=== PATIENT | male | born 2000 | race Caucasian/White ===

== ENCOUNTER 2023-12-14 14:28 | Outpatient (AMB) | payer OTHER, SELFPAY ==
--- NOTE | 2023-12-14 14:30 | A.OFFPC_ITS ---
Vital Signs 12/14/23 14:33 Height 5 ft 7 in Weight 112 lb BMI 17.5 BP 120/80 Blood Pressure Location Rt brachial Position Sitting Pulse 70 Pulse Source Pulse Oximeter Pulse Oximetry (%) 99 Oxygen Delivery Method Room Air Intake Visit Reasons: Annual PE/ Est Care Intake Note: Patient here to establish care and have physical exam. pt would like to discuss right shoulder pain/injury. Accompanied by: Self / Same As Patient Allergies No Known Allergies Allergy (Verified 12/14/23 17:16) Medication List - Last Reconciled 12/14/23 by CORETTA Marinelli No Known Home Meds Tobacco use date assessed: 12/14/23 Dental Screening Dental Screen Date: 12/14/23 Did you have a dental visit in the last 12 months?: Yes Did you have a dental problem in the last 6 months where you did not have access to dental care?: No Was dental information given to patient?: Patient has dentist HPI Annual PE/ Est Care HPI Details New pt is here for a PE. Will order labs. [facility] Social History Housing: House Patient Tobacco Use Status: Never used Tobacco e-Cigarette/Vaping Use: Never Used service: No Current occupational status: student Cognitive needs: No Hearing needs: No Vision needs: No Questionnaire PHQ-9 Over the last 2 weeks, how often have you been bothered by any of the following problems? 1. Little interest or pleasure in doing things: not at all 2. Feeling down, depressed, or hopeless: not at all 3. Trouble falling or staying asleep, or sleeping too much: several days 4. Feeling tired or having little energy: several days 5. Poor appetite or overeating: not at all 6. Feeling bad about yourself - or that you are a failure or have let yourself or your family down: not at all 7. Trouble concentrating on things, such as reading the newspaper or watching television: not at all 8. Moving or speaking so slowly that other people could have noticed. Or the opposite - being so fidgety or restless that you have been moving around a lot more than usual: not at all 9. Thoughts that you would be better off or of hurting yourself in some way: not at all Total score: 2 Depression Screening Interpretation: Negative Depression Screening Done: Yes 13085 - PHQ-9 Billing: Yes Source: Developed by Drs. Mitchel Toribio, Nisa Bridges, Siva Badillo and colleagues, with an educational ivelisse from [employer]. Thrive Questionnaire Date Thrive assessed: 12/14/23 I am a: Patient What is your living situation today?: I have a steady place to live Within the past 12 months, did the food you bought not last and you didn't have the money to get more?: Never true Within the past 12 months, did you worry whether your food would run out before you got money to buy more?: Never true Do you have trouble paying for medicines?: No Do you have trouble getting transportation to medical appointments?: No Do you have trouble paying your heating and electricity bill?: No Do you have trouble taking care of your child, family member or friend?: No Do you have trouble with day-to-day activities such as bathing, preparing meals, shopping, managing finances, etc.?: No Are you currently unemployed and looking for a job?: Yes Are you interested in more education?: No Please select the resources that you would like help with: None Currently or been in a relationship where the following occur: no concerns reported THRIVE Score: 0 AUDIT C Alcohol Use Questionnaire (AUDIT-C) 1. How often do you have a drink containing alcohol?: Monthly or less 2. How many drinks containing alcohol do you have on a typical day when you are drinking?: 1 or 2 3. How often do you have six or more drinks on one occasion?: Never Total Score: 1 Score Reviewed/Action Taken: No HALEIGH-7 AMB Questionnaire HALEIGH-7 Date HALEIGH - 7 assessed: 12/14/23 Feeling nervous, anxious, or on edge: 0 = Not at all Not being able to stop or control worryin = Not at all Worrying too much about different things: 0 = Not at all Trouble relaxin = Not at all Being so restless that it is hard to sit still: 0 = Not at all Becoming easily annoyed or irritable: 0 = Not at all Feeling afraid as if something awful might happen: 0 = Not at all Total HALEIGH-7 score (0-4 normal; 5-9 mild; 10-14 moderate; 15-21 severe): 0 Source: Developed by Drs. Mitchel Toribio, Nisa Bridges, Siva Badillo and colleagues, with an educational ivelisse from [employer]. HALEIGH-7 Assessment Billing HALEIGH-7 Assessment Tool: HALEIGH-7 Assessment 68069 Review of Systems Const Denies chills and Denies fever(s) Eyes Denies blurry vision ENT Denies vertigo, Denies dizziness and Denies sore throat Card Denies chest pain at rest, Denies chest pain with activity, Denies diaphoresis, Denies dyspnea and Denies dyspnea on exertion Resp Denies cough, Denies dyspnea, Denies dyspnea on exertion and Denies wheezing GI Denies abdominal pain, Denies melena, Denies hematochezia, Denies constipation, Denies diarrhea and Denies loose stools Denies hematuria Musc Denies numbness and Denies tingling Skin/Breast Denies lesions Neuro Denies vertigo, Denies dizziness, Denies numbness and Denies tingling Psych Denies anxiety, Denies depression, Denies homicidal ideation, Denies suicidal ideation and Denies other (substance abuse) Aller/Immun Denies wheezing Physical exam (Primary Care) Vital Signs: Last Vital Signs Pulse 70 12/14/23 14:33 BP 120/80 12/14/23 14:33 Pulse Ox 99 12/14/23 14:33 Oxygen Delivery Method Room Air 12/14/23 14:33 BMI result Body Mass Index 17.5 Tobacco/Smoking Status: Tobacco use Status Tobacco use date assessed 12/14/23 12/14/23 14:37 Patient Tobacco Use Status Never used Tobacco 12/14/23 14:37 e-Cigarette/Vaping Use Never Used 12/14/23 14:37 PHQ-9: PHQ-9 Score PHQ-9: Total score 2 12/14/23 16:15 Depression Screening Interpretation: Negative Thrive Assessment: Date of Thrive Assessment Date Thrive assessed 12/14/23 12/14/23 16:15 Currently or been in a relationship where the following occur: no concerns reported Const General: cooperative Nutritional Appearance: well nourished Orientation/consciousness: patient oriented x3 HENMT Head: Yes normal to inspection, Yes normocephalic and Yes atraumatic Ears: TM's normal bilaterally Eyes General: appearance normal, both eyes and all related structures Alignment and Position: alignment normal and position normal Neck Neck: Yes normal visual inspection and Yes no lymphadenopathy Thyroid: Thyroid normal Resp Effort & Inspection: normal respiratory effort Auscultation: clear to auscultation bilaterally Cardio Rate: regular rate Rhythm: regular rhythm Heart sounds: S1 normal heart sound present, S2 normal heart sound present and no murmurs GI Palpation (GI): Soft to palpation and nontender Auscultation: normal bowel sounds Male General Exam: Yes normal external exam Penis: normal penis Scrotum: scrotum normal, testes descended bilaterally and no inguinal hernias Testes: no testicular mass Skin Rashes: no rashes Neuro General: patient oriented x3, moves all extremities, no focal motor deficits and deep tendon reflexes 2+ bilaterally Romberg Test: Negative Psych Appearance: grossly normal Mental Status: mental status grossly normal Speech and movement: Normal speech and movement present Affect: normal affect Attitude: cooperative Thought process: Normal thought process present Thought content: Normal thought content present Insight: Good insight present (Psych) Judgement: Good judgement present (Psych) Assessment and Plan Assessment & Plan (1) Physical exam: Code(s): Z.00 - Encounter for general adult medical examination without abnormal findings Plan: Labs ordered Plan The patient agreed to the use of a medical cash poster for this encounter. Scribed for CORETTA Palacios by Caty Lucas medical cash poster, on 12/14/2023 at 14:40 EST. Orders: Orders Complete Blood Count Auto Diff Today Z00.00 - Encounter for general adult medical examination without abnormal findings TSH reflex Free T4 Today Z00.00 - Encounter for general adult medical examination without abnormal findings UA CC w/rflx Micro + Cult Today Z00.00 - Encounter for general adult medical examination without abnormal findings Comprehensive [place]. Panel Fast Today Z00.00 - Encounter for general adult medical examination without abnormal findings Lipid Panel Today Z00.00 - Encounter for general adult medical examination without abnormal findings Coding Level of Care Code New Pt Prev Care 18-39yr(84361 Diagnoses Physical exam Z00.00 Additional Codes HALEIGH-7 Assessment Billing - HALEIGH-7 Assessment Tool: HALEIGH-7 Assessment 99866 ([id number])
[2023-12-14 14:33] VITALS: BP 120/80; PULSE 70; O2SAT 99; BMI 17.5
== END 2023-12-14 17:10 | disposition home or self-care (01) ==
PROVIDERS: Visit Provider Nurse Practitioner Family
DX: Z00.00 Encounter for general adult medical examination without abnormal findings (principal)
CPT/HCPCS: 99385

== ENCOUNTER 2023-12-23 11:41 | Outpatient (REF) | payer OTHER, SELFPAY ==
[2023-12-23 13:37] LABS: MANUAL DIFF FLAG NO
[2023-12-23 13:54] LABS: Basophils Absolute Auto 0.1 X10*3/uL (0.0-0.2); Basophils Percent Auto 0.8 % (0-2); Eosinophils Absolute Auto 0.2 X10*3/uL (0.0-0.4); Eosinophils Percent Auto 2.4 % (0-4); Hematocrit 48.5 % (42.0-52.0); Hemoglobin 16.6 g/dl (14.0-18.0); Imm Gran Abs Auto 0.01 X10*3/uL (0.00-0.03); Imm Gran Pct Auto 0.2 % (0.0-0.4); Lymphocytes Absolute Auto 2.6 X10*3/uL (1.2-4.9); Mean Corpuscular HGB Conc 34.2 g/dl (31.0-36.0); Mean Corpuscular Hemoglobin 30.5 pg (27.0-33.0); Mean Platelet Volume 11.8 fL (9.4-12.4); Monocytes Absolute Auto 0.4 X10*3/uL (0.1-1.2); Monocytes Percent Auto 5.8 % (2-11); Neutrophils Absolute Auto 3.4 x10*3/uL (2.0-8.3); Neutrophils Percent Auto 51.8 % (45-73); Platelet Count 254 X10*3/uL (160-400); Red Blood Count 5.45 X10*6/uL (4.60-5.80); Red Cell Distribution Width 12.6 % (11.0-16.0); White Blood Count 6.5 X10*3/uL (4.8-10.8)
[2023-12-23 14:01] LABS: Appearance Urine Clear; Color Urine Yellow; Glucose Urine UA Negative (Negative); Leukocyte Esterase Urine Negative (Negative); Nitrite Urine Negative (Negative); Urine Blood Negative (Negative); Urine Ketones Negative (Negative); Urine Protein Negative (Neg-Trace)
[2023-12-23 14:49] LABS: Alanine Aminotransferase 33 U/L (0-40); Albumin Level 4.7 g/dL (3.5-5.0); Alkaline Phosphatase 59 U/L (39-117); Anion Gap 12 (12-20); Aspartate Amino Transferase 21 U/L (5-37); Bilirubin Total 0.7 mg/dL (0.0-1.0); Blood Urea Nitrogen 10 mg/dL (9-16); Calcium 9.6 mg/dL (8.4-10.2); Carbon Dioxide 25 mmol/L (22-29); Chloride 106 mmol/L (96-108); Cholesterol 214 mg/dL (<200); Estimated Glomerular Filt Rate > 60; Glucose Fasting 81 mg/dL (60-99); HDL Cholesterol 63 mg/dL (>40); LDL Cholesterol Calculated 134 mg/dL (<100); Potassium 3.5 mmol/L (3.3-5.1); Sodium 139 mmol/L (135-145); TSH reflex Free T4 1.05 uIU/mL (0.32-4.0); Total Protein 7.9 g/dL (6.5-8.0); Triglycerides 87 mg/dL (<150)
== END 2023-12-23 11:42 | disposition home or self-care (01) ==
LOC: HO.HMGCLDS 11:41
PROVIDERS: PCP Nurse Practitioner Family; Visit Provider Nurse Practitioner Family
DX: Z00.00 Encounter for general adult medical examination without abnormal findings (principal); Z13.6 Encounter for screening for cardiovascular disorders
CPT/HCPCS: 36415; 80053; 80061; 81003; 84443; 85025

== ENCOUNTER 2025-01-16 15:59 | Outpatient (AMB) | payer BC, SELFPAY ==
[2025-01-16 16:02] VITALS: BP 128/80; PULSE 70; O2SAT 99; BMI 17.5
--- NOTE | 2025-01-16 16:02 | A.OFFPC_ITS ---
Vital Signs 01/16/25 16:02 Height 5 ft 7 in Weight 112 lb BMI 17.5 BP 128/80 Blood Pressure Location Rt brachial Position Sitting Pulse 70 Pulse Source Pulse Oximeter Pulse Oximetry (%) 99 Intake Visit Reasons: Annual PE-See OA Ins. not active Allergies No Known Allergies Allergy (Verified 01/16/25 16:02) Medication List - Last Reconciled 01/16/25 by CORETTA Marinelli No Known Home Meds Tobacco use date assessed: 01/16/25 Dental Screening Dental Screen Date: 01/16/25 Did you have a dental visit in the last 12 months?: Yes Did you have a dental problem in the last 6 months where you did not have access to dental care?: No Was dental information given to patient?: Patient has dentist HPI Annual PE-See OA Ins. not active HPI Details History of Present Illness The patient is a 24-year-old male presenting with right shoulder pain. The pain is localized in the anterior region and has been ongoing since an injury sustained while at the gym last year. The patient reports no associated symptoms such as chest pain, shortness of breath, abdominal discomfort, blood in stool, constipation, or diarrhea. He has no suicidal or homicidal thoughts. Shoulder tests such as the Monique, neers, and Jobes tests were negative, suggesting specific physical alignment without gross deficits. The patient has not engaged in targeted therapy or stretching exercises yet and is interested in initiating a treatment plan to address his symptoms. Health Maintenance Social History - Exercise: The patient engages in gym a ctivities, which were implicated in the onset of his shoulder pain. Review of Systems - Musculoskeletal: Reports right shoulde r pain, primarily anterior. - General: Denies chest pain, shortness of breath, abdominal pain. - Gastrointestinal: Denies blood in stoo l, constipation, diarrhea. - Mental Health: Denies suicidal ideatio n and homicidal ideation. Physical Exam General: Cooperative, healthy appearing, comfortable, no acute distress and well developed Orientation: Patient oriented x3 Limitations: No limitations Head: Normal to inspection Ears: Hearing grossly normal bilaterally Nose: Normal external nose present Face and sinus: Normal facial exam Eyes: Appearance normal, both eyes and all related structures Neck: Normal visual inspection and Yes full ROM Respiratory: Normal respiratory effort and able to speak in complete sentences. Clear to auscultation bilaterally Cardiovascular: Regular rate and rhythm. Normal S1 and S2 GI: Normal to inspection. Soft to palpation and nontender Skin: No rashes or lesions noted Neuro: Patient oriented x3 Extremities: Normal to inspection, except for ongoing right shoulder pain, mostly in the anterior aspect. Negative Monique test, negative Rincon test, negative Jobes test. Results Plan For the right shoulder pain, a structured physical therapy program and a shoulder-specific stretching routine are recommended. The aim is to address and manage the symptoms effectively through non-pharmacological means, focusing on improving joint function and reducing pain during physical exertion. No immediate advanced diagnostic or pharmacological interventions were planned. Discussion Notes During our discussion, I emphasized the importance of a structured physical therapy regimen for addressing the patient's right shoulder pain. We explored the benefits of improving flexibility and strength through guided exercises, which are critical in managing this condition without pharmacological intervention at this stage. I advised him on the value of consistent application of stretching routines to alleviate his symptoms. We did not discuss further diagnostic or advanced treatment options at this time. Patient Instructions - Start physical therapy and stretching exercises as planned. - Engage in regular and consistent stret rebecca routines focused on the shoulder. - Monitor symptoms and adjust activities if pain increases. - Return for follow-up consultation if s ymptoms persist or worsen. [facility] Surgical History No pertinent past surgical history Social History (Reviewed 01/16/25 @ 16:42 by Davi Valle [employer]IND[employer] SET UP [employer]ATOR [facility] Housing: [place] Patient Tobacco Use Status: Never used Tobacco e-Cigarette/Vaping Use: Never Used service: No Current occupational status: student Cognitive needs: No Hearing needs: No Vision needs: No Questionnaire PHQ-9 Over the last 2 weeks, how often have you been bothered by any of the following problems? 1. Little interest or pleasure in doing things: not at all 2. Feeling down, depressed, or hopeless: not at all 3. Trouble falling or staying asleep, or sleeping too much: not at all 4. Feeling tired or having little energy: not at all 5. Poor appetite or overeating: several days 6. Feeling bad about yourself - or that you are a failure or have let yourself or your family down: not at all 7. Trouble concentrating on things, such as reading the newspaper or watching television: not at all 8. Moving or speaking so slowly that other people could have noticed. Or the opposite - being so fidgety or restless that you have been moving around a lot more than usual: not at all 9. Thoughts that you would be better off or of hurting yourself in some way: not at all Total score: 1 Depression Screening Interpretation: Negative Depression Screening Done: Yes 37155 - PHQ-9 Billing: Yes Source: Developed by Drs. Mitchel Toribio, Nisa Bridges, Siva Badillo and colleagues, with an educational ivelisse from [employer]. Thrive Questionnaire Date Thrive assessed: 01/16/25 I am a: Patient What is your living situation today?: I have a steady place to live Within the past 12 months, did the food you bought not last and you didn't have the money to get more?: Never true Within the past 12 months, did you worry whether your food would run out before you got money to buy more?: Never true Do you have trouble paying for medicines?: No Do you have trouble getting transportation to medical appointments?: No Do you have trouble paying your heating and electricity bill?: No Do you have trouble taking care of your child, family member or friend?: No Do you have trouble with day-to-day activities such as bathing, preparing meals, shopping, managing finances, etc.?: No Are you currently unemployed and looking for a job?: No Are you interested in more education?: No Please select the resources that you would like help with: None Currently or been in a relationship where the following occur: No concerns reported THRIVE Score: 0 AUDIT C Alcohol Use Questionnaire (AUDIT-C) 1. How often do you have a drink containing alcohol?: Monthly or less 2. How many drinks containing alcohol do you have on a typical day when you are drinking?: 3 or 4 3. How often do you have six or more drinks on one occasion?: Less than monthly Total Score: 3 Score Reviewed/Action Taken: Yes HALEIGH-7 AMB Questionnaire HALEIGH-7 Date HALEIGH - 7 assessed: 01/16/25 Feeling nervous, anxious, or on edge: 1 = Several days Not being able to stop or control worryin = Not at all Worrying too much about different things: 0 = Not at all Trouble relaxin = Not at all Being so restless that it is hard to sit still: 0 = Not at all Becoming easily annoyed or irritable: 0 = Not at all Feeling afraid as if something awful might happen: 0 = Not at all Total HALEIGH-7 score (0-4 normal; 5-9 mild; 10-14 moderate; 15-21 severe): 1 Source: Developed by Drs. Mitchel Toribio, Nisa Bridges, Siva Badillo and colleagues, with an educational ivelisse from [employer]. HALEIGH-7 Assessment Billing HALEIGH-7 Assessment Tool: HALEIGH-7 Assessment 52442 Physical exam (Primary Care) Vital Signs: Last Vital Signs Pulse 70 01/16/25 16:02 BP 128/80 01/16/25 16:02 Pulse Ox 99 01/16/25 16:02 BMI result Body Mass Index 17.5 Tobacco/Smoking Status: Tobacco use Status Tobacco use date assessed 01/16/25 01/16/25 16:03 Patient Tobacco Use Status Never used Tobacco 01/16/25 16:03 e-Cigarette/Vaping Use Never Used 01/16/25 16:03 PHQ-9: PHQ-9 Score PHQ-9: Total score 1 01/16/25 16:03 Depression Screening Interpretation: Negative Thrive Assessment: Date of Thrive Assessment Date Thrive assessed 01/16/25 01/16/25 16:03 Currently or been in a relationship where the following occur: No concerns reported Coding Level of Care Code Est Pt Prev Care 18-39y(39138) Diagnoses Physical exam Z00.00 Right shoulder pain M25.511 Additional Codes HALEIGH-7 Assessment Billing - HALEIGH-7 Assessment Tool: HALEIGH-7 Assessment 90859 ([id number]) PHQ-9 - 69192 - PHQ-9 Billing: Yes ([id number]) Assessment & Plan Assessment & Plan (1) Physical exam: Code(s): Z00.00 - Encounter for general adult medical examination without abnormal findings Category: Medical (2) Right shoulder pain: Code(s): M25.511 - Pain in right shoulder Category: Medical Plan . Orders: Orders Comprehensive [place]. Panel Fast Today Z00.00 - Encounter for general adult medical examination without abnormal findings Lipid Panel Today Z00.00 - Encounter for general adult medical examination without abnormal findings PT Evaluation and Treatment Today M25.511 - Pain in right shoulder Complete Blood Count Auto Diff Today Z00.00 - Encounter for general adult medical examination without abnormal findings TSH reflex Free T4 Today Z00.00 - Encounter for general adult medical examination without abnormal findings UA CC w/rflx Micro + Cult Today Z00.00 - Encounter for general adult medical examination without abnormal findings
--- OUTSIDE RECORDS SUMMARY | 2025-01-16 16:29 | XMS_ITS | Clinical Summary ---
Author Organization [facility] Address [address] [place] [id number] Phone Care Team Providers Care Glass Worker Name Role Phone Umair Oswald MD Primary Care Provider Allergies No known active allergies Medications No known medications Active Problems Problem Noted Date Diagnosed Date Myopia of both eyes 06/17/2022 Assessment & Plan (06/18/2022 6:35 AM EDT): On screening noted to have poor distance vision. Discussed and referring to ophthalmology for further evaluation and management. Underweight 04/27/2013 Overview (05/01/2019): Underweight (783.22) Onset: 04/27/2013 Added by: Umair Oswald Assessment & Plan (06/18/2022 6:35 AM EDT): Gaining weight. He has been eating more and going to the gym regularly. Plan to continue with this. Assessment & Plan (06/17/2021 6:09 PM EDT): He has been trying to gain weight without success, increasing calorie intake. Will obtain lab work checking for medical issues related to weight loss or trouble gaining weight. Assessment & Plan (05/07/2020 9:35 AM EDT): Discussed increasing healthy fats, protein and calories in diet. Assessment & Plan (05/01/2019 3:24 PM EDT): Discussed adding additional calories to diet. He is also looking to go to the gym to help build muscle mass. Tried previously with boost once a day supplement without much change to weight. Resolved Problems Problem Noted Date Diagnosed Date Resolved Date Precordial catch syndrome 03/24/2023 Assessment & Plan (03/24/2023 7:05 AM EDT): History and exam consistent with precordial catch. Reassured patient that this should resolve on its own. Discussed precordial catch. No concern currently for a heart, lung or reflux problem. Low back strain, initial encounter 06/17/2021 06/18/2022 Assessment & Plan (06/17/2021 6:08 PM EDT): Low back discomfort mentioned. Given handout on stretches and strengthening exercises to help with this. Immunizations Immunization Administration Dates Next Due DTaP 5 12/14/2005, 2,06/06/2001,04/10,02/01/2001 H1N1 Inj Preservative Free 10/29/2009,09/19/2009 HPV Vaccine 9 Valent 06/17/2021,05/07/2020,05/01 Hep A, Adult 06/17/2021 Hep A, ped/adol 05/01/2019 Hep B, ped/adol 03/05/2002,06/06/2001,2000 Hib (PRP-T) 03/05/2002, 1,04/10/2001,02/01 IPV 12/14/2005, 2,04/10/2001,02/01 Influenza, injectable, quadr ivalent, preservative free 06/23/2023,06/17/2022,06/17/2021 Influenza, injectable, trivalent 020,06/13/2010,06/27/2009,07/11,06/29/2007 Influenza, injectable, triva lent, preservative free 07/21/2012,05/21/2011 MMR 12/14/2005,2001 Meningococcal Conj (Menactra) MCV4P 05/09/2017,0 01/22/2013 Pneumococcal Conjugate 12/14/2004,2000,04/10/2001,02/01 Tdap 03/23/2023,01/22/2013 Varicella 01/22/2013,03/05/2002 Family History Medical History Relation Name Comments No Known Problems Father Mitchel Relation Name Status Comments Father Mitchel Alive Mother Sheron Alive Social History Tobacco Use Types Packs/Day Years Used Date Smoking Tobacco: Never Comments:Never Smoker Alcohol Use Standard Drinks/Week Comments Yes 1 (1 standard drink = 0.6 oz pur e alcohol) 1-2 times a month 1-3 drinks Hunger/Food Answer Date Recorded In the last 12 months, did y ou or your family ever eat less than you felt you should because there wasn't enough money for food? No 06/23/2023 Stable Housing Answer Date Recorded Are you worried that in the next 2 months you may not have stable housing? No 06/23/2023 Transportation Concerns Answer Date Rec orded In the last 12 months, have you or your family ever had to go without healthcare because you didn't have a way to get there? No 06/23/2023 Hazards in Home Answer Date Recorded Think about the place you li ve. Do you have problems with any of the following? Pests (mice or roaches), mold, no/not working smoke detectors, water leaks, no window guards. No 2022 Financing Utilities Answer Date Recorde d In the last 12 months, has t he electric, gas, oil, or water company threatened to shut off your services in your home? No 06/23/2023 Safety at Home Answer Date Recorded Are you or your family worried about feeling saf e in your home? No 06/23/2023 Outside Support Answer Date Recorded Do you feel that you need mo re support from other people or programs to help you care for yourself or your family? No 06/23/2023 Understanding Health Concerns Answer Da te Recorded Do you need help understandi ng your or your child's healthcare needs (diagnosis, medications, plan, etc.)? No 06/23/2023 Financing Health Concerns Answer Date R ecorded In the last 12 months, was t here a time when your child needed to see a doctor or get medications or supplies but could not because of cost? No 06/23/2023 Missing School or Work Answer Date Vivek rded Did you or your child miss s chool or work because of a health problem that could have been avoided? No 06/23/2023 Sex and Gender Information Value Date Recorded Sex Assigned at Male 05/01/2019 3:12 PM EDT Legal Sex Male 6:33 PM EDT Gender Identity Male 05/01/2019 3:12 PM EDT Sexual Orientation Straight 05/01/2019 3: 12 PM EDT Last Filed Vital Signs Vital Sign Reading Time Taken Comments Blood Pressure 120/70 06/23/2023 12:59 PM EDT Pulse 73 06/23/2023 12:59 PM EDT Temperature 36.6 ??C (97.8 ??F) 06/23/2023 12:59 PM E DT Respiratory Rate - - Oxygen Saturation 98% 06/23/2023 12:59 PM EDT Inhaled Oxygen Concentration - - Weight 52.3 kg (115 lb 4.8 oz) 06/23/2023 12:59 PM EDT Height 167.6 cm (5' 6 ) 06/23/2023 12:59 PM EDT Body Mass Index 18.61 06/23/2023 12:59 PM EDT Plan of Treatment Health Maintenance Due Date Last Done Comments Influenza Vaccines (#1) 2024 06/23/20 23, 06/17/2022, 06/17/2021, Additional history exists COVID-19 Vaccine ( season) 2024 09/23/2021, 03/09/2021, 02/16/2021 DTaP,Tdap,and Td Vaccines (8 - Td or Tdap) 03/23/2033 03/23/2023, 01/22/2013, 12/14/2005, Additional history exists HIB Vaccines Completed 03/05/2002, 05/14, 04/10/2001, Additional history exists Hepatitis B Vaccines Completed 03/05/2002, 06/06/2001, 2000 Pneumococcal Vaccine Completed 12/14/2004, 06/06/2001, 04/10/2001, Additional history exists IPV Vaccines Completed 12/14/2005, 05/14, 04/10/2001, Additional history exists MMR Vaccines Completed 12/14/2005, 2001 Varicella Vaccines Completed 01/22/2013, 03/05/2002 Meningococcal Vaccine Completed 05/09/2017, 013 HPV Vaccines Completed 06/17/2021, 04/13, 05/01/2019 Hepatitis A Vaccines Completed 06/17/2021, 05/01/20 19 Men B Vaccine Aged Out No longer elig ible based on patient's age to complete this topic Insurance [facility] [place] [id number] Care Teams Glass Worker Relationship Specialty Start Date End Date Umair Oswald MD [address] [place] [address] [place] [address] PCP - General Pediatrics 03/17/22
--- OUTSIDE RECORDS SUMMARY | 2025-01-16 16:29 | XMS_ITS | Encounter Summary ---
Author Organization [facility] Address [address] [place] [phone] Phone Care Team Providers Care College Administrator Name Role Phone Umair Oswald MD Primary Care Provider Encounter Details Date Type Department Care Team (Late st Contact Info) Description 01/28/2011 Conversion Encounter [facility] [address] [facility] [place] [phone] Social History Tobacco Use Types Packs/Day Years Used Date Smoking Tobacco: Never Assessed Sex and Gender Information Value Date Recorded Sex Assigned at Male 05/01/2019 3:12 PM EDT Legal Sex Male 6:33 PM EDT Gender Identity Male 05/01/2019 3:12 PM EDT Sexual Orientation Straight 05/01/2019 3: 12 PM EDT documented as of this encounter Plan of Treatment Not on file documented as of this encounter Visit Diagnoses Not on filedocumented in this encounter Care Teams College Administrator Relationship Specialty Start Date End Date Umair Oswald MD [address] [facility] [place] [address] PCP - General Pediatrics 03/17/22 documented as of this encounter
== END 2025-01-16 16:51 | disposition home or self-care (01) ==
LOC: HO.HMCC 16:01
PROVIDERS: PCP Nurse Practitioner Family; Visit Provider Nurse Practitioner Family
DX: Z00.00 Encounter for general adult medical examination without abnormal findings (principal); M25.511 Pain in right shoulder

== ENCOUNTER → 2025-01-16 15:59 | Outpatient (BNVA) | payer BC, SELFPAY | PROVIDERS: PCP Nurse Practitioner Family; Visit Provider Nurse Practitioner Family | DX: Z00.01 Encounter for general adult medical examination with abnormal findings (principal); M25.511 Pain in right shoulder | CPT/HCPCS: 96127 ==

== ENCOUNTER 2025-02-01 13:04 | Outpatient (REF) | payer BC, SELFPAY ==
--- OUTSIDE RECORDS SUMMARY | 2025-02-01 13:08 | XMS_ITS | Clinical Summary ---
Author Organization [facility] Address [address] [place] [phone] Phone Care Team Providers Care Rattlesnake Farmer Name Role Phone Umair Oswald MD Primary [...] patient's age to complete this topic Insurance [facility] [place] [id number] Care Teams Rattlesnake Farmer Relationship Specialty Start Date End Date Umair Oswald MD [address] [place] [address] [place] [address] PCP - General Pediatrics 03/17/22
[2025-02-01 16:16] LABS: Appearance Urine Clear; Color Urine Yellow; Glucose Urine UA Negative (Negative); Leukocyte Esterase Urine Negative (Negative); Nitrite Urine Negative (Negative); PH 6.5 (5.0-9.0); Specific Gravity - Urine <= 1.005 (1.005-1.025); Urine Blood Negative (Negative); Urine Ketones Negative (Negative); Urine Protein Negative (Neg-Trace)
[2025-02-01 16:24] LABS: MANUAL DIFF FLAG NO
[2025-02-01 16:40] LABS: Basophils Percent Auto 0.5 % (0-2); Eosinophils Absolute Auto 0.2 X10*3/uL (0.0-0.4); Eosinophils Percent Auto 1.8 % (0-4); Hematocrit 50.2 % (42.0-52.0); Hemoglobin 16.8 g/dl (14.0-18.0); Imm Gran Abs Auto 0.03 X10*3/uL (0.00-0.03); Imm Gran Pct Auto 0.4 % (0.0-0.4); Lymphocytes Percent Auto 23.4 % (20-40); Mean Corpuscular HGB Conc 33.5 g/dl (31.0-36.0); Mean Corpuscular Hemoglobin 30.8 pg (27.0-33.0); Mean Corpuscular Volume 92.1 fL (80.0-98.0); Mean Platelet Volume 11.5 fL (9.4-12.4); Monocytes Absolute Auto 0.5 X10*3/uL (0.1-1.2); Neutrophils Absolute Auto 5.8 x10*3/uL (2.0-8.3); Neutrophils Percent Auto 67.9 % (45-73); Platelet Count 263 X10*3/uL (160-400); Red Blood Count 5.45 X10*6/uL (4.60-5.80); Red Cell Distribution Width 12.8 % (11.0-16.0); White Blood Count 8.6 X10*3/uL (4.8-10.8)
[2025-02-01 17:13] LABS: Alanine Aminotransferase 48 U/L (0-40); Albumin Level 4.8 g/dL (3.5-5.0); Alkaline Phosphatase 57 U/L (39-117); Anion Gap 13 (12-20); Aspartate Amino Transferase 31 U/L (5-37); Bilirubin Total 0.7 mg/dL (0.0-1.0); Blood Urea Nitrogen 14 mg/dL (9-16); Calcium 9.5 mg/dL (8.4-10.2); Carbon Dioxide 26 mmol/L (22-29); Chloride 107 mmol/L (96-108); Cholesterol 238 mg/dL (<200); Estimated Glomerular Filt Rate > 60; Glucose Fasting 86 mg/dL (60-99); HDL Cholesterol 69 mg/dL (>40); LDL Cholesterol Calculated 158 mg/dL (<100); Potassium 3.9 mmol/L (3.3-5.1); Sodium 142 mmol/L (135-145); Total Protein 7.7 g/dL (6.5-8.0); Triglycerides 56 mg/dL (<150)
[2025-02-01 17:28] LABS: TSH reflex Free T4 0.84 uIU/mL (0.32-4.0)
== END 2025-02-01 13:05 | disposition home or self-care (01) ==
LOC: HO.HMGCLDS 13:04
PROVIDERS: PCP Nurse Practitioner Family; Visit Provider Nurse Practitioner Family
DX: Z00.00 Encounter for general adult medical examination without abnormal findings (principal); Z13.6 Encounter for screening for cardiovascular disorders
CPT/HCPCS: 36415; 80053; 80061; 81003; 84443; 85025

== ENCOUNTER 2025-04-13 09:06 | Outpatient (REF) | payer BC, SELFPAY ==
[2025-04-13 11:32] LABS: Alanine Aminotransferase 39 U/L (0-40); Albumin Level 4.8 g/dL (3.5-5.0); Alkaline Phosphatase 72 U/L (39-117); Anion Gap 13 (12-20); Aspartate Amino Transferase 32 U/L (5-37); Blood Urea Nitrogen 17 mg/dL (9-16); Calcium 9.3 mg/dL (8.4-10.2); Carbon Dioxide 27 mmol/L (22-29); Chloride 104 mmol/L (96-108); Cholesterol 177 mg/dL (<200); Estimated Glomerular Filt Rate > 60; HDL Cholesterol 53 mg/dL (>40); Potassium 3.8 mmol/L (3.3-5.1); Sodium 140 mmol/L (135-145); Total Protein 7.7 g/dL (6.5-8.0); Triglycerides 121 mg/dL (<150)
[2025-04-13 11:56] LABS: HBS Num1 0.54 mIU/mL (0-7.99); HBc Num1 0.08 S/CO (0.00-0.79); HBsAGNum1 0.37 S/CO (0.00-0.99); Hepatitis A Antibody IgM 0.23 Index (0-0.79); Hepatitis B Surface Antigen Negative (Negative); ~HepC Num1 0.09 S/CO (0.00-0.79); ~Hepatitis A Antibody IgM Nonreactive (Nonreactive); ~Hepatitis B Surface Antibody NONREACTIVE (Nonreactive); ~Hepatitis C Antibody Nonreactive (Nonreactive)
== END 2025-04-13 09:07 | disposition home or self-care (01) ==
LOC: HO.HMGCLDS 09:06
PROVIDERS: PCP Nurse Practitioner Family; Visit Provider Nurse Practitioner Family
DX: Z01.84 Encounter for antibody response examination (principal); Z11.59 Encounter for screening for other viral diseases; R74.8 Abnormal levels of other serum enzymes; E78.5 Hyperlipidemia, unspecified
CPT/HCPCS: 36415; 80053; 80061; 86704; 86706; 86709; 86803; 87340